=== PATIENT | female | born 1965 | race Hispanic/Latino ===

== ENCOUNTER 2019-04-10 16:40 | Emergency (ER) | payer BC, SELFPAY | END 2019-04-10 17:39 | disposition home or self-care (01) | LOC: ERS 16:40 | DX: J11.1 Influenza due to unidentified influenza virus with other respiratory manifestations (principal); I10 Essential (primary) hypertension; E78.5 Hyperlipidemia, unspecified; E78.00 Pure hypercholesterolemia, unspecified | CPT/HCPCS: 99283 ==

== ENCOUNTER 2021-08-09 16:26 | Emergency (ER) | payer SELFPAY | END 2021-08-09 17:25 | disposition home or self-care (01) | LOC: ERS 16:26 | DX: H10.9 Unspecified conjunctivitis (principal); I10 Essential (primary) hypertension; E78.5 Hyperlipidemia, unspecified; E78.00 Pure hypercholesterolemia, unspecified; F17.210 Nicotine dependence, cigarettes, uncomplicated | CPT/HCPCS: 99282 ==